=== PATIENT | male | born 1975 | race Caucasian/White ===

== ENCOUNTER 2025-05-19 08:56 | Observation (INO) | payer BC, MEDICARE, SELFPAY ==
[2025-05-19] VITALS (23 sets, daily range): BP systolic 118–163; BP diastolic 76–106; BMI 36.2; BMI 36.1; BMI 35.3
[2025-05-19 04:03] LABS: Hematocrit 44.5 % (39.0-52.0); Hemoglobin 14.9 g/dL (13.0-18.0); Mean Corp Hgb Conc. 33.5 g/dL (33.0-37.0); Mean Corpuscular Volume 87.4 fL (80.0-94.0); Nucleated Red Blood Cells % 0 % (-); Platelet Count 272 10^3/uL (130-400); Red Cell Dist. Width 12.7 % (11.5-14.5)
--- NOTE | 2025-05-19 04:15 | ED.GENMED ---
History of Present Illness
<Abi Gray PA-C - Last Filed: 05/19/25 10:50>
General
Chief Complaint: Abdominal Pain
Source: patient
Exam Limitations: none
Time Seen by Provider: 05/19/25 03:28
Nursing documentation reviewed up to this point in time: agreed with
History of Present Illness
History of Present Illness:
Note:
CHIEF COMPLAINT(S)
Abdominal pain and bloating.
HISTORY OF PRESENT ILLNESS
The patient is a 49-year-old male with a history of multiple sclerosis (MS) presenting with abdominal pain that began a few days ago. Initially, the pain was mild but gradually intensified, leading to severe discomfort prompting medical evaluation.
The pain is described as sharp and persistent, originating in the upper left abdominal quadrant and radiating to the back. The patient experiences exacerbation of pain with movement and reports feeling bloated. Eating exacerbated the pain,
particularly after consuming spicy food and ibuprofen. There is no associated vomiting, though the patient reports dark stools, possibly due to Pepto-Bismol use. The patient has a past medical history significant for diverticulitis and a hernia
repair over 20 years ago. Additionally, the patient describes having constant numbness in the legs, attributed to MS, and recent unproductive attempts to have a bowel movement. A TENS unit was temporarily effective for back discomfort but did not
alleviate abdominal symptoms.
PAST MEDICAL AND SURGICAL HISTORY
- History of diverticulitis
- Hernia repair over 20 years ago
- Multiple sclerosis (MS)
CHRONIC MEDICAL CONDITIONS SIGNIFICANTLY AFFECTING CARE
Multiple sclerosis, resulting in chronic numbness in the legs and spasms.
SOCIAL HISTORY
The patient reports occasional alcohol use.
MEDICATIONS
- Ibuprofen
- Omeprazole
REVIEW OF SYSTEMS
- Gastrointestinal: Reports abdominal pain, bloating, recent dark stools, and lack of bowel movement urge.
- Musculoskeletal: Chronic numbness and spasms due to multiple sclerosis.
PHYSICAL EXAM
General: Alert, no acute distress.
Skin: Warm, dry.
Head: Normocephalic, atraumatic.
Neck: Supple, trachea midline.
Eyes, Ears, Nose, Mouth, and Throat: Oral mucosa moist.
Cardiovascular: Regular rate and rhythm, no murmurs. Normal peripheral perfusion, No edema.
Respiratory: Respirations are non-labored.
Gastrointestinal: Abdomen nondistended, left upper quadrant abdominal tenderness with guarding noted..
Back: Normal range of motion, Normal alignment.
Musculoskeletal: Normal ROM, normal strength.
Neurological: Alert and oriented to person, place, time, and situation, No focal neurological deficit observed.
Psychiatric: Cooperative, appropriate mood & affect.
PROBLEM LIST
Acute Problems:
- Severe abdominal pain
- Bloating
- Possible gastrointestinal bleeding (dark stools)
Chronic Problems:
- Multiple sclerosis with chronic numbness and spasms
PLAN
1. Administer IV pain management, avoiding NSAIDs due to gastrointestinal concerns.
2. Provide anti-nausea medication prophylactically to address potential side effects of stronger analgesics.
3. Perform a computed tomography (CT) scan of the abdomen to evaluate potential causes like pancreatitis, kidney stones, or any obstruction.
4. Ensure adequate hydration.
5. Monitor bowel movements and reassess the need for further gastrointestinal evaluation.
DIFFERENTIAL DIAGNOSIS
The Differential Diagnosis includes, in no particular order and is not limited to:
- Pancreatitis
- Kidney stones
- Diverticulitis
- Gastritis or Peptic ulcer disease
- Bowel obstruction
- Abdominal aneurysm
- Hernia
- Inflammatory bowel disease (IBD)
- Cholelithiasis and cholecystitis
- Abdominal abscess
Disposition:
SUMMARY OF ENCOUNTER
The patient is a 49-year-old male with a history of multiple sclerosis presenting to the emergency department with severe, sharp, stabbing left upper quadrant abdominal pain radiating to the back. He was diagnosed with acute pancreatitis based on CT
scan findings and classic abdominal pain presentation. Upon evaluation, the patient was afebrile. He received multiple doses of pain medication and was administered lactated Ringers for hydration.
DISPOSITION
Admit.
ASSESSMENT
The patient is experiencing acute pancreatitis characterized by typical abdominal pain and confirmed by CT scan.
EMERGENCY TREATMENTS ADMINISTERED
The patient received multiple doses of pain medications and lactated Ringers IV fluids for hydration.
MANAGEMENT OF THE PATIENTS CARE WAS DISCUSSED WITH
The case was discussed with the emergency department attending physician.
PLAN
1. Admit the patient for management of acute pancreatitis.
2. Continue IV fluid resuscitation.
3. Provide ongoing pain management.
4. Monitor pancreatic enzyme levels and electrolytes.
5. Ensure nil per os (NPO) until symptoms improve.
MEDICAL DECISION MAKING
1. Number and Complexity of Problems Addressed: Chronic conditions affecting care include multiple sclerosis. Differential diagnosis considered included pancreatitis, kidney stones, diverticulitis, and others.
2. Data: Category 1
- The patient underwent a CT scan of the abdomen, which confirmed acute pancreatitis.
Category 3
- Discussion of management with the emergency department attending physician occurred.
DIAGNOSIS
- Acute pancreatitis (ICD-10: K85.9)
Phy Exam
<Abi Gray PA-C - Last Filed: 05/19/25 10:50>
Physical Exam
Physical Exam:
see hpi
Course
<Abi Gray PA-C - Last Filed: 05/19/25 10:50>
Orders/Labs/Results
Orders:
Orders
05/19/25 03:33
IV Insert/Care/Rem.- Treatment PRN
05/19/25 03:34
Complete Blood Count/With Diff Urgent
05/19/25 04:13
Electrocardiogram (*1) Urgent
Reason for Study: Abdominal Pain
CT Abd/pelvis W Iv Cont Urgent
Comment:
Reason For Exam: left sided abdominal pain
EKG- Treatment ONCE
Famotidine [Pepcid] 20 mg IV NOW STA
Morphine Sulfate 4 mg IV NOW STA
Ondansetron Injectable [Zofran] 4 mg IV NOW STA
05/19/25 04:31
Comprehensive Metabolic Panel Urgent
Comment: REDRAW
Lipase Urgent
Comment: REDRAW
05/19/25 05:52
HYDROmorphone [Dilaudid] 0.5 mg IV NOW STA
Lactated Ringers [Lr] 500 ml IV BOLUS
05/19/25 08:12
Admit/Transfer Patient As Directed
Co-Sign Provider:
Level of Care: Observation services
Assign to:: Medical/Surgical
Physician / Group: Rosey Brantley
Diagnosis: Abdominal pain
Expected length of stay greater than two midnights?: No
ELOS- Estimated Length of Stay in days: 1
I certify the patient meets the requirements for IP care: Yes
Reason for Overnight Stay: Standard of Care
05/19/25 08:13
PRN Pain Medication Management As Directed
May give lesser potent ordered pain med per pt: Yes
preference::
Protocol:: Medication orders for pain may be administered in a
manner that supports deferring to patient preference
when the pt is:
- Requesting an ordered lesser potent pain medication.
Least to most potent pain medications are defined
as: acetaminophen < NSAID < tramadol < opioids
(morphine, oxycodone, hydromorphone).
- Requesting a lesser dose of the same medication IF
ORDERED.
- Requesting a less intrusive route of administration
if both routes are prescribed by the provider (PO <
IV).
05/19/25 08:34
Code Status As Directed
Resuscitation Status: Full Code
05/19/25 10:37
HYDROmorphone [Dilaudid] 0.5 mg IV Q4HPRN PRN
Abnormal Lab Results
05/19/25 05/19/25
03:34 04:31
WBC 13.7 H 10^3/uL
(4.8-10.8)
Absolute Neuts (auto) 11.7 H 10^3/uL
(1.4-6.5)
Absolute Lymphs (auto) 1.0 L 10^3/uL
(1.2-3.4)
Absolute Monos (auto) 0.9 H 10^3/uL
(0.1-0.6)
Neutrophils % 85.2 H %
(42.2-75.2)
Lymphocytes % 7.0 L %
(20.5-51.1)
Glucose 116 H mg/dl
(70-99)
05/19/25 03:34
05/19/25 04:31
Vital Signs
Initial and Last Documented VS:
Initial Vital Signs
Temp Pulse Resp BP Pulse Ox
98.5 F 77 22 127/93 96
05/19/25 03:07 05/19/25 03:07 05/19/25 03:07 05/19/25 03:07 05/19/25 03:07
Last Documented Vital Signs
Temp Pulse Resp BP Pulse Ox
98.5 F 68 17 145/96 96
05/19/25 03:07 05/19/25 03:30 05/19/25 03:30 05/19/25 03:29 05/19/25 04:16
<Julius Muller DO - Last Filed: 05/19/25 06:44>
Orders/Labs/Results
Orders:
Orders
05/19/25 03:33
IV Insert/Care/Rem.- Treatment PRN
05/19/25 03:34
Complete Blood Count/With Diff Urgent
05/19/25 04:13
Electrocardiogram (*1) Urgent
Reason for Study: Abdominal Pain
CT Abd/pelvis W Iv Cont Urgent
Comment:
Reason For Exam: left sided abdominal pain
EKG- Treatment ONCE
Famotidine [Pepcid] 20 mg IV NOW STA
Morphine Sulfate 4 mg IV NOW STA
Ondansetron Injectable [Zofran] 4 mg IV NOW STA
05/19/25 04:31
Comprehensive Metabolic Panel Urgent
Comment: REDRAW
Lipase Urgent
Comment: REDRAW
05/19/25 05:52
HYDROmorphone [Dilaudid] 0.5 mg IV NOW STA
Lactated Ringers [Lr] 500 ml IV BOLUS
05/19/25 08:12
Admit/Transfer Patient As Directed
Co-Sign Provider:
Level of Care: Observation services
Assign to:: Medical/Surgical
Physician / Group: Rosey Brantley
Diagnosis: Abdominal pain
Expected length of stay greater than two midnights?: No
ELOS- Estimated Length of Stay in days: 1
I certify the patient meets the requirements for IP care: Yes
Reason for Overnight Stay: Standard of Care
05/19/25 08:13
PRN Pain Medication Management As Directed
May give lesser potent ordered pain med per pt: Yes
preference::
Protocol:: Medication orders for pain may be administered in a
manner that supports deferring to patient preference
when the pt is:
- Requesting an ordered lesser potent pain medication.
Least to most potent pain medications are defined
as: acetaminophen < NSAID < tramadol < opioids
(morphine, oxycodone, hydromorphone).
- Requesting a lesser dose of the same medication IF
ORDERED.
- Requesting a less intrusive route of administration
if both routes are prescribed by the provider (PO <
IV).
05/19/25 08:34
Code Status As Directed
Resuscitation Status: Full Code
05/19/25 10:37
HYDROmorphone [Dilaudid] 0.5 mg IV Q4HPRN PRN
Abnormal Lab Results
05/19/25 05/19/25
03:34 04:31
WBC 13.7 H 10^3/uL
(4.8-10.8)
Absolute Neuts (auto) 11.7 H 10^3/uL
(1.4-6.5)
Absolute Lymphs (auto) 1.0 L 10^3/uL
(1.2-3.4)
Absolute Monos (auto) 0.9 H 10^3/uL
(0.1-0.6)
Neutrophils % 85.2 H %
(42.2-75.2)
Lymphocytes % 7.0 L %
(20.5-51.1)
Glucose 116 H mg/dl
(70-99)
05/19/25 03:34
05/19/25 04:31
Vital Signs
Initial and Last Documented VS:
Initial Vital Signs
Temp Pulse Resp BP Pulse Ox
98.5 F 77 22 127/93 96
05/19/25 03:07 05/19/25 03:07 05/19/25 03:07 05/19/25 03:07 05/19/25 03:07
Last Documented Vital Signs
Temp Pulse Resp BP Pulse Ox
98.5 F 68 17 145/96 96
05/19/25 03:07 05/19/25 03:30 05/19/25 03:30 05/19/25 03:29 05/19/25 04:16
Analilt;Abi Gray PA-C - Last Filed: 05/19/25 10:50>
*Pulse Oximetry
SaO2: 96
Oxygen Mode of Delivery: Room air
Patient hypoxic: no
*Critical Care Note
Total Time (30-74mins, 75-104mins- exclusive of procedures): Not Applicable
ED Attending Note
<Abi Gray PA-C - Last Filed: 05/19/25 10:50>
-
Portions of this chart may have been created with voice recognition software.� Occasional wrong word or��sound alike� substitutions may have occurred due to the inherent limitations of voice recognition software.
<Julius Muller DO - Last Filed: 05/19/25 06:44>
ED Attending Note
Patient seen and examined by attending physician: Yes
ED Attending Note:
49-year-old male presents with left-sided upper abdominal pain. It began on Saturday after eating [employer]. He states that the pain was severe and progressively worsening so he came into the emergency department. He got fluids and pain medicine to
help with his pain. He states that previously eating food would exacerbate his symptoms. Patient was seen in conjunction with the JOEY and agree with her history and plan. On my independent physical exam patient is awake alert and oriented. He
states that his pain is 2 out of 10. He states that he got 2 doses of pain medicine. He patient is in no respiratory distress. Abdomen is soft with tenderness to palpation in the left upper quadrant. Patient to be admitted to the hospitalist
service.
Discharge Plan
Departure
Patient Disposition: Admit
Date of Disposition: 05/19/25
Time of Disposition: 06:30
Admit to: Med/Surg
Presentation/result/management discussed w/ accepting MD/DO: Hospitalist
Patient with high blood pressure during this ER visit?: Yes
Condition: Fair
Discharge Problem:
Acute pancreatitis
Interventions
Interventions:
*Risk Screen - Suicide Last Done: 05/19/25 03:07
*General Assessment Last Done: 05/19/25 03:40
*Neglect/Abuse Screening Last Done: 05/19/25 03:30
*ED- Fall Risk Assessment Last Done: 05/19/25 03:30
RV-Lxasrw-Vhcipxnrdb Assessment Last Done: 05/19/25 03:40
[2025-05-19] MEDS: MORPHINE SULFATE 4 MG IV (04:26)
[2025-05-19] MEDS: PEPCID 20 MG IV (04:27)
[2025-05-19] MEDS: ZOFRAN 4 MG IV ×2 (04:27→18:30)
[2025-05-19 05:21] LABS: ALT (SGPT) 24 U/L (0-50); AST (SGOT) 25 U/L (17-59); Albumin 4.5 g/dl (3.5-5.0); Alkaline Phosphatase 76 U/L (38-126); Blood Urea Nitrogen 12 mg/dl (9-20); Calcium 9.8 mg/dl (8.4-10.2); Carbon Dioxide 26 mmol/L (22-30); Chloride 107 mmol/L (98-107); Estimated Creatinine Clearance 116 ml/min; Glucose 116 mg/dl (70-99); Lipase 207 U/L (23-300); Potassium 4.3 mmol/L (3.5-5.1); Sodium 140 mmol/L (135-145); Total Protein 7.0 g/dl (6.3-8.2); eGFR > 60.00
[2025-05-19] MEDS: LR 500 IV (06:22)
[2025-05-19] MEDS: DILAUDID 0.5 MG IV ×3 (06:23→18:30)
--- NOTE | 2025-05-19 07:43 | HPS.HSE ---
Addendum entered and electronically signed by Rosey Brantley MD 05/19/25 09:39:
I personally performed a history and physical exam of the patient and discussed management with the resident. I reviewed the resident's note and agree with the documented findings and plan of care HPI/CC.
GENERAL: well developed, well nourished, obese male in mild distress (can't get comfortable on the stretcher)
HEENT: NC/AT--no jaundiced, no icterus
HEART: regular rate and rhythm, +S1, +S2
LUNGS : clear to auscultation bilaterally
ABDOM: soft, tender left side of midepigastrium, nondistended, decreased bowel sounds
EXT: no cyanosis, clubbing, or edema
NEUROLOGIC: grossly intact
Acute LUQ pain--no previous history--agree with normal lipase, not consistent with acute pancreatitis--takes significant amts of ibuprofen--concern for PUD/reflux--cannot rule out gallbladder cause BUT location also not consistent with
cholecystitis--CT scan indicates fat stranding around tail of pancreas but serum lipase normal as mentioned--consult GI--cont pain meds--avoid NSaids--PPI BIB IV
Leukocytosis with left shift--Likely reactive, secondary to inflammatory process--Not sepsis, no hypotension, tachycardia or tachypnea upon admission--no obvious infectious source--Trend WBC count
Multiple sclerosis--Continue fingolimod
Hyperlipidemia--Continue atorvastatin 20 mg--LFTs WNL
DVT proph--Heparin subcu
CODE STATUS--Full code
Original Note:
Family Physician
-
Family Physician: Hermann Garner DO
Chief Complaint
-
Abdominal pain.
History of Present Illness
49-year-old male with past medical history significant for multiple sclerosis, hyperlipidemia, obesity presents to the emergency room for evaluation of acute onset left upper quadrant pain. He states that his pain started on Saturday night, initially
it was just limited to the area under his left ribs but it progressively became worse and severe, describes it as a hollow stabbing pain, 10/10 in intensity, continuous, radiating into his upper back. He tried TENS patch with improvement in the
back pain but no improvement in abdominal pain. Through Saturday, he started having fullness, burping, and early satiety. His meal portion sizes all through yesterday significantly decreased, he describes his baseline as 2-3 soft well formed bowel
movements but he did not have any bowel movement yesterday in the afternoon. His gave him enema with the hope of improving his abdominal pain but he did not have any bowel movement. Patient reports to never had that symptoms before. His
abdominal pain is also associated with nausea
He states that he has been diagnosed with diverticulitis, single episode when he was in his late 20s, and he was in ER at [facility]. No significant GI history otherwise.
His baseline is having tingling and numbness with pain in bilateral lower extremities and arms and forearms from MS.
He denies having fevers, chills, tarry colored stools, hematochezia, urinary symptoms, dizziness, chest pain, shortness of breath.
Medical History
Past Medical History
Past Medical History: Reports Other (Multiple sclerosis, obesity, hyperlipidemia, diverticulitis, chronic pain)
Past Surgical History: Reports Other (Inguinal hernia repair)
Social History
Tobacco: Non-smoker
Alcohol: Occasional (Once in ER)
Drug: Marijuana (Medical)
Personal:
Living: With Family
Employment: Disabled
Family History
Family History: Not pertinent
Allergies / Home Medications
Allergies reflects when Allergies were last updated in [employer].
Home Medications with original date entered in [employer]
Allergy/Medication List:
Allergies
Allergy/AdvReac Type Severity Reaction Status Date / Time
No Known Allergies Allergy Unverified 05/19/25 03:06
Home Medications
atorvastatin 20 mg tablet (Lipitor) 20 mg PO DAILY 05/19/25
fingolimod 0.5 mg capsule (Gilenya) 0.5 mg PO DAILY 05/19/25
ibuprofen 800 mg tablet 800 mg PO Q6HPRN PRN mild pain 05/19/25
omeprazole 20 mg tablet,delayed release 20 mg PO DAILY 05/19/25
Review of Systems
-
Constitutional: Reports No Symptoms
EENT: Reports No Symptoms
Respiratory: Reports No Symptoms
Cardiac: Reports No Symptoms
Abdomen/GI: Reports Abdominal Pain, Nausea, Constipated and Other (Early satiety, bloating, burping); Denies Vomiting, Diarrhea, Bloody Stools or Black Stools
: Reports No Symptoms
Musculoskeletal: Reports No Symptoms
Skin: Reports No Symptoms
Neurological: Reports No Symptoms
Endocrine: Reports No Symptoms
Hematologic/Lymphatic: Reports No Symptoms
Psych: Reports No Symptoms
Physical Exam
Vital Signs
Vital Signs
Temp Pulse Resp BP Pulse Ox
98.5 F 68 17 145/96 96
05/19/25 03:07 05/19/25 03:30 05/19/25 03:30 05/19/25 03:29 05/19/25 04:16
Physical Exam
General: Pain
HEENT: Anicteric, Moist mucous membranes and PERRLA
Respiratory: Clear; No Wheezes, Rales, Rhonchi or Crackles
Cardiac: S1/S2 and Regular Rhythm; No Murmur, Rub or Gallop
GI: Soft, Non Distended, Normal Bowel Sounds and Tender (Epigastric region)
Genito-urinary: Deferred by me
Musculoskeletal: No Clubbing, No Cyanosis and No Edema
Neuro: AO x 3 and No Motor Deficits
Psych: Calm
Laboratory Results
-
05/19/25 03:34
05/19/25 04:31
Laboratory Results
Total Bilirubin 0.7 mg/dl (0.2-1.3) 05/19/25 04:31
AST 25 U/L (17-59) 05/19/25 04:31
ALT 24 U/L (0-50) 05/19/25 04:31
Alkaline Phosphatase 76 U/L (38-126) 05/19/25 04:31
Lipase 207 U/L (23-300) 05/19/25 04:31
Data Reviewed
-
CT Scan: Image Personally Visualized and interpreted, Discussed with Physician and Discussed with Patient
Lab Data: Labs Reviewed by me, Discussed with Physician and Discussed with Patient
Impression/Plan
-
IMPRESSION: 49-year-old male with past medical history significant for multiple sclerosis, hyperlipidemia, and obesity presents to the ER for evaluation of acute abdominal pain. Patient is being brought to observation services.
PLAN:
# Acute LUQ pain
Unclear etiology,
Inconsistent with acute pancreatitis-lipase normal, CT findings-negative, official read pending.
Distended gallbladder on the CT, concern for gallstones.
Obtain ultrasound of the gallbladder.
IV fluids, clear liquid diet.
IV pantoprazole twice daily
Dilaudid as needed for pain
Hold ibuprofen, strong suspicion for peptic ulcer with prolonged use of high doses of ibuprofen, GI consulted-appreciate inputs.
# Leukocytosis with left shift-
Likely reactive, secondary to inflammatory process
Not infective, no hypotension, tachycardia or tachypnea upon admission.
Trend WBC count, if suspicion for infection will obtain further workup.
# Multiple sclerosis-
Continue fingolimod
# Hyperlipidemia-
Continue atorvastatin 20 mg
# DVT prophylaxis-
Heparin subcu
# CODE STATUS-
Full code.
--- NOTE | 2025-05-19 09:18 | CM ---
Patient seen at bedside in ED with Physician. Patient states that he lives with in a 2 story home with no DME. Patient states that he has MS. Patient OBS and form completed and signed form placed on chart. Patient PCP is Dr. Garner and he uses
the the [facility] in [place]. CM will continue to follow for discharge planning needs.
Plan; home with no needs vs home with VN; pending medical treatment plan
--- NOTE | 2025-05-19 10:51 | CON.GI ---
Addendum entered and electronically signed by Felipe Bowen MD 05/20/25 11:07:
I saw and examined the patient.
The ENGINEER SECOND ASSISTANT or PA's note was reviewed and I agree with the note.
Pt seen 05/20 at 7am
Comment:
Pt with a hx of MS for decades, chronic pain who had acute LUQ. CT showed some stranding in LUQ. normal lipase. Pt with complete resolution of his pain last night. he thinks it was with the IV PPI. He is on chronic nsaids.
abd; soft nontender
u/s negative
MRI pending
plan:
f/u MRI
avoid nsaids
if MRI negative will need outpatient EGD/colonoscopy which I can arrange to happen within the next few weeks.
cont PPI
consider Anorectal mano to r/o spasm from PFD secondary to MS which can be done as an outpatient
Original Note:
Consultation
-
Date/Time Consultation Requested: 05/19/25 1030
Date/Time Consultation Performed: 05/19/25 1100
Requesting Provider: Vivi Acosta MD
Performing Provider: CHRISTIANO Moura, Felipe Bowen MD
Reason for Consultation: abdominal pain - LUQ
Medical History
Chief Complaint / HPI
Chief Complaint: abdominal pain
History of Present Illness:
Pt is a 49yo with hx hypercholesterolemia, MS, obesity, diverticulitis, chronic pain, inguinal hernia repair presents to ER with LUQ pain with noted WBC 13,700, glucose 116 with otherwise normal lab and normal LFT and lipase. CT completed with
Mild mesenteric fat stranding seen in the left upper quadrant of the abdomen about the tail of the pancreas. Findings could represent acute pancreatitis or atypical mesenteric panniculitis.
In review with patient he began with abdominal pain on 05/17 with radiation to back. He tried TENS unit, enema as felt constipation but pain was up to 10/10. In ER given pain meds with improvement to 5/10. Pain worse with eating. No hx
pancreatitis or family hx pancreatic issues. No new medications. He also admits to belching, nausea, and GERD but denies dysphagia, diarrhea, blood or black in stools. No hx EGD or colonoscopy. + NSAID use up to 3 tabs daily. No chronic
Omeprazole.
05/19/25 CT Abd/pelvis W Iv Cont
Mild mesenteric fat stranding seen in the left upper quadrant of the abdomen about the tail of the pancreas. Findings could represent acute pancreatitis or atypical mesenteric panniculitis. Suggest correlation with serum lipase.
Unremarkable appendix.
Past Medical History
Past Medical History: Hypercholesterolemia and Other (MS, obesity, diverticulitis, chronic pain )
Past Surgical History: Other (inguinal hernia repair )
Social History
Tobacco: Non-Smoker
Alcohol: Other (social in past )
Drug: Marijuana
Personal:
Living: With Family
Employment: Disabled
Family History
Family History: Other (no family hx panc problems. unknown father hx as when pt young )
Allergies / Home Medications
Allergy/AdvReac Type Severity Reaction Status Date / Time
No Known Allergies Allergy Unverified 05/19/25 03:06
�Medication �Instructions �Recorded
atorvastatin 20 mg tablet (Lipitor) 20 mg PO DAILY 05/19/25
fingolimod 0.5 mg capsule (Gilenya) 0.5 mg PO DAILY 05/19/25
ibuprofen 800 mg tablet 800 mg PO Q6HPRN PRN mild pain 05/19/25
omeprazole 20 mg tablet,delayed 20 mg PO DAILY 05/19/25
release
Review of Systems
-
History Source: Patient and Family
Constitutional: Reports No Symptoms
EENT: Reports No Symptoms
Respiratory: Reports No Symptoms
Abdomen/GI: Reports Abdominal Pain, Nausea, Constipated and Other (belching, bloating )
: Reports No Symptoms
Musculoskeletal: Reports No Symptoms
Skin: Reports No Symptoms
Neurological: Reports No Symptoms
Endocrine: Reports No Symptoms
Hematologic/Lymphatic: Reports No Symptoms
Vital Signs
Temp Pulse Resp BP Pulse Ox
98.5 F 68 17 145/96 96
05/19/25 03:07 05/19/25 03:30 05/19/25 03:30 05/19/25 03:29 05/19/25 04:16
Physical Exam
Exam
General: Well Developed and Well Nourished
HEENT: Normocephalic and Anicteric
Respiratory: Clear
Cardiac: Regular Rhythm
GI: Soft, Non Distended and Tender (LUQ without guarding or rebound )
Musculoskeletal: No Clubbing and No Cyanosis
Skin: Warm and Dry
Neuro: Awake, Alert and AO x 3
Psych: Calm
Results
WBC 13.7 10^3/uL (4.8-10.8) H 05/19/25 03:34
Hgb 14.9 g/dL (13.0-18.0) 05/19/25 03:34
Hct 44.5 % (39.0-52.0) 05/19/25 03:34
MCV 87.4 fL (80.0-94.0) 05/19/25 03:34
Plt Count 272 10^3/uL (130-400) 05/19/25 03:34
Absolute Neuts (auto) 11.7 10^3/uL (1.4-6.5) H 05/19/25 03:34
Sodium 140 mmol/L (135-145) 05/19/25 04:31
Potassium 4.3 mmol/L (3.5-5.1) 05/19/25 04:31
Chloride 107 mmol/L (98-107) 05/19/25 04:31
Carbon Dioxide 26 mmol/L (22-30) 05/19/25 04:31
BUN 12 mg/dl (9-20) 05/19/25 04:31
Creatinine 1.0 mg/dL (0.7-1.3) 05/19/25 04:31
Calcium 9.8 mg/dl (8.4-10.2) 05/19/25 04:31
Total Bilirubin 0.7 mg/dl (0.2-1.3) 05/19/25 04:31
AST 25 U/L (17-59) 05/19/25 04:31
ALT 24 U/L (0-50) 05/19/25 04:31
Alkaline Phosphatase 76 U/L (38-126) 05/19/25 04:31
Lipase 207 U/L (23-300) 05/19/25 04:31
Diagnostic Image Results:
05/19/25 CT Abd/pelvis W Iv Cont
Mild mesenteric fat stranding seen in the left upper quadrant of the abdomen about the tail of the pancreas. Findings could represent acute pancreatitis or atypical mesenteric panniculitis. Suggest correlation with serum lipase.
Unremarkable appendix.
Prior GI Procedures:
EGD: none
Colonoscopy: none
Assessment / Plan
-
Pt is a 49yo with hx hypercholesterolemia, MS, obesity, diverticulitis, chronic pain, inguinal hernia repair presents to ER with LUQ pain with noted WBC 13,700, glucose 116 with otherwise normal lab and normal LFT and lipase. CT completed with
Mild mesenteric fat stranding seen in the left upper quadrant of the abdomen about the tail of the pancreas. Findings could represent acute pancreatitis or atypical mesenteric panniculitis. In review with patient he began with abdominal pain on 05/17
with radiation to back. He tried TENS unit, enema as felt constipation but pain was up to 10/10. In ER given pain meds with improvement to 5/10. Pain worse with eating. No hx pancreatitis or family hx pancreatic issues. No new medications. He
also admits to belching, nausea, and GERD but denies dysphagia, diarrhea, blood or black in stools. No hx EGD or colonoscopy. + NSAID use up to 3 tabs daily. No chronic Omeprazole.
-LUQ pain
-CT with Mild mesenteric fat stranding seen in the left upper quadrant of the abdomen about the tail of the pancreas
-? mild ileus with bloating, belching, nausea
-leukocytosis
-increased NSAID use
other med problems:
hypercholesterolemia, MS, obesity, diverticulitis, chronic pain, inguinal hernia repair
PLAN:
etiology of symptoms related to tail pancreatitis(lipase normal but does have pain and inflammation on imaging), peptic/duodenal ulcer disease, vs other CT also questions mesenteric panniculitis
if pancreatitis though may be tail pancreatitis - eval for CBD stone, med induced (on statin, omeprazole and ibuprofen all potential etiology but chronic use) vs other
may have mild ileus with bloating, belching, nausea, and constipation
discussed for EGD with patient but he declines to get further imaging first-- pt may be agreeable pending MRI
will add MRI with MRCP to further eval for tail pancreatitis
cont IVF -reviewed with hospitalist resident
pain control
NSAID avoidance
discussed OP follow up for repeat imaging if etiology unclear (to follow up with panc tail inflammation and mesenteric panniculitis) and will need eventual colonoscopy for screening
updated family at bedside
-
-
Thank you for consultation and allowing me to participate in the patient's care. Please call the bell spinner [facility] GI physician during the after hours with any questions or concerns.
[2025-05-19] MEDS: LR 1000 IV (16:36)
[2025-05-19] MEDS: HEPARIN 5000 UNITS SC (22:39)
[2025-05-19] MEDS: PROTONIX IV 40 MG IV (22:39)
[2025-05-19] MEDS: NSS (PRESERVATIVE FREE) 10 ML IV (22:39)
[2025-05-20] MEDS: LR 1000 IV (03:26)
[2025-05-20 08:04] VITALS: BP 127/80
[2025-05-20] MEDS: NSS (PRESERVATIVE FREE) 10 ML IV (08:32)
[2025-05-20] MEDS: PROTONIX IV 40 MG IV (08:33)
[2025-05-20] MEDS: HEPARIN 5000 UNITS SC (08:33)
[2025-05-20] MEDS: NON-FORMULARY ITEM 0.5 MG PO (08:33)
[2025-05-20] MEDS: LIPITOR 20 MG PO (08:34)
[2025-05-20 12:42] LABS: Hematocrit 46.5 % (39.0-52.0); Hemoglobin 15.1 g/dL (13.0-18.0); Mean Corp Hgb Conc. 32.5 g/dL (33.0-37.0); Mean Corpuscular Volume 90.3 fL (80.0-94.0); Nucleated Red Blood Cells % 0 % (-); Platelet Count 265 10^3/uL (130-400); Red Cell Dist. Width 12.8 % (11.5-14.5)
[2025-05-20 13:40] LABS: Blood Urea Nitrogen 12 mg/dl (9-20); Calcium 10.2 mg/dl (8.4-10.2); Carbon Dioxide 30 mmol/L (22-30); Chloride 103 mmol/L (98-107); Estimated Creatinine Clearance 114 ml/min; Glucose 92 mg/dl (70-99); Lipase 86 U/L (23-300); Potassium 4.4 mmol/L (3.5-5.1); Sodium 140 mmol/L (135-145); eGFR > 60.00
--- NOTE | 2025-05-20 14:35 | W.PN.HOSP.TC ---
Today's Communication/Plan
-
d/c if tolerating diet
Assessment / Plan
Assessment / Plan
pt is a 49 year old male
Acute LUQ pain--no previous history--agree with normal lipase, not consistent with acute pancreatitis--takes significant amts of ibuprofen--concern for PUD/reflux--US neg for gallbladder disease --CT and MRI indicates fat stranding around tail of
pancreas but serum lipase normal as mentioned--apprec GI--cont pain meds--avoid NSaids--PPI IV BID--at d/c would take BID for ~1 month --needs EGD/colon as outpt
Leukocytosis with left shift--Likely reactive, secondary to inflammatory process--Not sepsis, no hypotension, tachycardia or tachypnea upon admission--no obvious infectious source--Trend WBC count
Multiple sclerosis--Continue fingolimod
Hyperlipidemia--Continue atorvastatin 20 mg--LFTs WNL
DVT proph--Heparin subcu
CODE STATUS--Full code
Anticipated Discharge: Today
Subjective/Interval History
-
Date of Service: May 20, 2025
after protonix dosing, pain went away
Objective Data
-
Labs:
Laboratory Results
05/20/25
12:23
WBC 10.6
Hgb 15.1
Hct 46.5
Plt Count 265
Sodium 140
Potassium 4.4
Chloride 103
Carbon Dioxide 30
BUN 12
Creatinine 1.0
Glucose 92
Calcium 10.2
Vital Signs:
max temp for 24 hours
05/19/25
23:11
Temp 98.6 F
Vital Signs
Temp Pulse Resp BP Pulse Ox
97.1 F 69 14 127/80 97
05/20/25 08:04 05/20/25 08:04 05/20/25 08:04 05/20/25 08:04 05/20/25 08:04
Review of Systems
-
All other systems: Reviewed and negative
Physical Exam
-
General: Well Developed, Well Nourished and No Apparent Distress
HEENT: Normocephalic and Atraumatic; Negative Oxygen
Respiratory: Clear to Auscultation; Negative Wheezes, Rales or Rhonchi
Cardiac: Regular Rhythm and S1/S2; Negative Murmur
GI: Soft, Nontender, Nondistended and Normal Bowel Sounds
Musculoskeletal: No Clubbing, No Cyanosis and No Edema
Neuro: Awake and Alert
Psych: Calm
--- NOTE | 2025-05-20 15:06 | PTOTSP ---
Chart reviewed, spoke with the patient. Patient denied changes in his mobility since admission and denies the need for PT assessment. PT will sign off; patient is aware our services are available if needed.
[2025-05-20 15:10] VITALS: BP 156/94
--- NOTE | 2025-05-20 15:19 | W.PN.GI.CBS2 ---
Today's Communication / Plan
-
set pt up for EGD/colon on 05/31. our office schedulers will call him
Assessment / Plan
-
Pt is a 49yo with hx hypercholesterolemia, MS, obesity, diverticulitis, chronic pain, inguinal hernia repair presents to ER with LUQ pain with noted WBC 13,700, glucose 116 with otherwise normal lab and normal LFT and lipase. CT completed with
Mild mesenteric fat stranding seen in the left upper quadrant of the abdomen about the tail of the pancreas. Findings could represent acute pancreatitis or atypical mesenteric panniculitis. In review with patient he began with abdominal pain on 05/17
with radiation to back. He tried TENS unit, enema as felt constipation but pain was up to 10/10. In ER given pain meds with improvement to 5/10. Pain worse with eating. No hx pancreatitis or family hx pancreatic issues. No new medications. He
also admits to belching, nausea, and GERD but denies dysphagia, diarrhea, blood or black in stools. No hx EGD or colonoscopy. + NSAID use up to 3 tabs daily. No chronic Omeprazole.
-LUQ pain
-CT with Mild mesenteric fat stranding seen in the left upper quadrant of the abdomen about the tail of the pancreas
-? mild ileus with bloating, belching, nausea
-leukocytosis
-increased NSAID use
other med problems:
hypercholesterolemia, MS, obesity, diverticulitis, chronic pain, inguinal hernia repair
PLAN:
etiology of symptoms related to tail pancreatitis(lipase normal but does have pain and inflammation on imaging), peptic/duodenal ulcer disease, vs other CT also questions mesenteric panniculitis
if pancreatitis though may be tail pancreatitis - eval for CBD stone, med induced (on statin, omeprazole and ibuprofen all potential etiology but chronic use) vs other
may have mild ileus with bloating, belching, nausea, and constipation
discussed for EGD with patient but he declines to get further imaging first-- pt may be agreeable pending MRI
will add MRI with MRCP to further eval for tail pancreatitis
cont IVF -reviewed with hospitalist resident
pain control
NSAID avoidance
discussed OP follow up for repeat imaging if etiology unclear (to follow up with panc tail inflammation and mesenteric panniculitis) and will need eventual colonoscopy for screening
updated family at bedside
Subjective
Subjective
Date of Service: May 20, 2025
Objective
Data Reviewed
Laboratory Data:
Laboratory Results
05/20/25 12:23
05/20/25 12:23
Laboratory Results
Total Bilirubin 0.7 mg/dl (0.2-1.3) 05/19/25 04:31
AST 25 U/L (17-59) 05/19/25 04:31
ALT 24 U/L (0-50) 05/19/25 04:31
Alkaline Phosphatase 76 U/L (38-126) 05/19/25 04:31
Lipase 86 U/L (23-300) 05/20/25 12:23
Vital Signs and I&O:
Vital Signs
Temp Pulse Resp BP Pulse Ox
98.4 F 63 14 156/94 97
05/20/25 15:10 05/20/25 15:10 05/20/25 15:10 05/20/25 15:10 05/20/25 15:10
--- NOTE | 2025-05-20 15:55 | CM ---
Patient seen at bedside
discharge today
IMM n/a - OBS status
PLAN: home, no needs
to transport
[2025-05-20] MEDS: LR IV (16:25)
--- NOTE | 2025-05-20 18:06 | W.DCSUMMARY ---
Discharge Summary
Discharge Data
Date of Admission: 05/19/25
Date of Discharge: 05/20/25
-
Pending Results: No
Hospital Course
Primary care physician : Mitch Garner
Principal Discharge diagnosis : Acute left upper quadrant pain
Chronic Discharge diagnosis : Multiple sclerosis, hyperlipidemia
Hospital Course : Patient is a 49-year-old male who presented with acute left upper quadrant abdominal pain. He stated that his pain started on Saturday night prior to admission and it was limited to the area under his left rib. It progressively
became worse and severe and describes it as a stabbing pain, 10 out of 10 in intensity, continuous and radiating to his upper back. He stated that he tried a TENS patch with improvement. He also had fullness, burping, and early satiety. His
gave him an enema with the hopes of improving his abdominal pain but that did not improve anything. He describes his baseline stools as 2-3 soft well-formed bowel movements but on the day prior to admission he did not have a bowel movement since
the afternoon. Of note, patient has a history of multiple sclerosis and has been taking significant amounts of Motrin for his MS pain. Patient was admitted.
Problem #1: Acute left upper quadrant pain. This was initially thought to be pancreatitis by the emergency room workup. However, his lipase was only 202. Our working diagnosis was more along the lines of peptic ulcer disease/reflux/gastritis due
to the fact that he was taking significant amounts of Motrin. CAT scan of the abdomen and pelvis and MRI of the abdomen show mild inflammation of the tail of the pancreas but again not terribly consistent with acute pancreatitis. Patient was seen
in consultation by GI and EGD was attempted but patient refused. Patient stated he had significant improvement with IV Protonix. He is tolerating a diet at this time. GI is recommending outpatient EGD and colonoscopy. Repeat lipase went from 202
to 89. It is recommended that the patient go on oral Protonix twice daily for at least the next month. He should follow-up with GI for his EGD and colonoscopy.
Problem #2: All other medical issues. These include multiple sclerosis and hyperlipidemia. These medical issues were stable during his hospitalization. Medications were continued as able.
Patient is stable for discharge home at this time. If there are any questions regarding this dictation or his hospital stay, please do not hesitate to call. Our office number is [phone].
Important imaging findings :
CT SCAN ABDOMEN/PELVIS IMPRESSION:
Mild mesenteric fat stranding seen in the left upper quadrant of the abdomen about the tail of the pancreas. Findings could represent acute pancreatitis or atypical mesenteric panniculitis. Suggest correlation with serum lipase.
Unremarkable appendix.
ABDOMINAL US IMPRESSION:
1. No evidence of cholelithiasis, acute cholecystitis, or biliary ductal dilation.
2. No sonographic abnormalities demonstrated.
3. Pancreas was not well visualized due to overlying bowel gas.
ABDOMINAL MRI IMPRESSION:
Mild acute interstitial pancreatitis involving the pancreatic tail.
No common bile duct or main pancreatic duct dilatation. No evidence of choledocholithiasis.
Discharge Plan
-
Patient Disposition: Home (Routine Discharge)
Discharge Diagnosis/Procedures: Acute left upper quadrant pain concerning for peptic ulcer disease/gastritis/reflux, multiple sclerosis, hyperlipidemia
Condition: Good
Diet: Low Residue
Additional Diets: advance to regular as tolerated
Activity: As tolerated
Driving Restrictions: As prior to admission
Bathing Restrictions: None
Referrals:
Felipe Bowen MD [Active, Gastroenterology]
Referral Note: follow up 6-8 week to discuss need for repeat imaging and eventual colonoscopy for screening
Hermann Garner DO [Family Provider, Family Practice] - in less than 1 week
Additional Discharge Medication Instructions: STOP NSAIDS (motrin, ibuprofen, etc)
Prescriptions:
New
pantoprazole 40 mg tablet,delayed release (DR/EC)
40 mg PO BID Qty: 60 0RF
Continued
fingolimod [Gilenya] 0.5 mg Capsule
0.5 mg PO DAILY
atorvastatin [Lipitor] 20 mg Tablet
20 mg PO DAILY
Discontinued
ibuprofen 800 mg Tablet
800 mg PO Q6HPRN PRN (Reason: mild pain)
omeprazole 20 mg Tablet,Delayed Release (Dr/Ec)
20 mg PO DAILY
Discharge Orders:
Discharge Patient (As Directed); Ordered 05/20/25
Ordered By: Rosey Brantley
Discharge Date and Time
Print Language: LATVIAN
== END 2025-05-20 17:40 | disposition home or self-care (01) ==
LOC: 3 WEST ACU 08:56
PROVIDERS: Student in an Organized Health Care Education/Training Program; ADMITTING PHYSICIAN Internal Medicine; CONSULT PHYSICIAN Internal Medicine; EMERGENCY PHYSICIAN Student in an Organized Health Care Education/Training Program; FAMILY PHYSICIAN Family Medicine
DX: R10.9 Unspecified abdominal pain (principal); R20.0 Anesthesia of skin; R25.2 Cramp and spasm; R68.81 Early satiety; R11.0 Nausea; I05.0 Rheumatic mitral stenosis; E66.9 Obesity, unspecified; D72.829 Elevated white blood cell count, unspecified; E78.00 Pure hypercholesterolemia, unspecified; K82.8 Other specified diseases of gallbladder; G89.29 Other chronic pain; K21.9 Gastro-esophageal reflux disease without esophagitis; K56.7 Ileus, unspecified; Z68.35 Body mass index [BMI] 35.0-35.9, adult; Z79.899 Other long term (current) drug therapy; Z87.19 Personal history of other diseases of the digestive system; Z98.890 Other specified postprocedural states
CPT/HCPCS: 74177; 74183; 76700; 80048; 80053; 83690; 85025; 93005; 96361; 96374; 96375; 99285; A9575; G0378; Q9967

== ENCOUNTER 2025-05-31 06:18 | Day surgery (SDC) | payer BC, MEDICARE, SELFPAY | END 2025-05-31 15:11 | disposition home or self-care (01) | LOC: GI 06:18 | PROVIDERS: ATTENDING PHYSICIAN Internal Medicine | DX: Z12.11 Encounter for screening for malignant neoplasm of colon (principal); K64.8 Other hemorrhoids; R10.13 Epigastric pain; K44.9 Diaphragmatic hernia without obstruction or gangrene; K29.70 Gastritis, unspecified, without bleeding; D12.0 Benign neoplasm of cecum; D12.5 Benign neoplasm of sigmoid colon; K63.5 Polyp of colon | CPT/HCPCS: 45385; 45380; 43239; 88305; 88342 ==